=== PATIENT | male | born 1955 | race Caucasian/White ===

== ENCOUNTER → 2019-04-13 | Day surgery (SDC) | payer MEDICARE, MEDICAID ==
[~2019-04-13] MED LIST: BENZTROPINE MES1 MG; BENZTROPINE MES1 MG PO; CLONAZEPAM; CLONAZEPAM 0.50.5 M1 PO; COLACE100 MG PO; DESYREL100 MG; FERRO-TIME325 MG; FISH OIL 1,001000 M2 PO; FLOMAX0.4 MG PO; FLONASE 0.05%50 MCG; FLUVOXAMINE MAL25 MG; JANUVIA100 MG PO; K-DUR 20 MEQ T20 MEQ; LASIX 40 MG TAB40 M2 PO; LEVOXYL175 MCG; LINZESS290 MCG PO; LOSARTAN POTAS100 MG PO; METFORMIN HCL500 MG PO; NEXIUM40 MG; NEXIUM40 MG PO; NORVASC10 MG PO; PRINIVIL20 MG; REQUIP4 MG PO; RISPERDAL0.5 MG PO; RISPERDAL4 M1 PO; SELENIUM SULFI120 ML TOP; SELENIUM SULFIDE; SILDENAFIL20 MG PO; STOOL SOFTENER50 MG; SYNTHROID200 MCG PO; SYNTHROID25 MC1 PO; TRIFLUOPERAZINE10 MG; TRIFLUOPERAZINE10 MG PO; ULTRAM 50MG TAB50 MG PO; VITAMIN B122500 MCG PO; VITAMIN D5000 UNIT PO; ZETIA10 MG PO
[2019-04-13 08:36] LABS: HEMATOCRIT 39.5 % (42.0-52.0); MCH 25.8 pg (26.0-34.0); MCHC 32.9 g/dL (28.0-37.0); MCV 78.4 fL (80.0-100.0); MPV 6.9 fl. (7.2-11.1); RBC 5.03 mil/uL (4.50-6.00); RDW-CV 16.6 % (10.5-14.5); WBC 9.5 thou/uL (4.0-11.0)
[2019-04-13 08:47] LABS: CALCIUM 9.5 mg/dL (8.5-10.1); POTASSIUM 3.5 mmol/L (3.5-5.1)
--- NOTE | 2019-04-13 10:52 | EKG ---
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: : 1955 Requested By: Sergio Sam Order Number: [id number] Brock MD: Juan Correa Measurements Intervals [place] Rate: 83 P: -6 AK: 177 QRS: -34 QRSD: 102 T: 29 QT: 361 QTc: 425 Interpretive Statements Sinus rhythm Left axis deviation Abnormal R-wave progression, early transition Compared to ECG 03/29/2006 12:02:07 Left-axis deviation now present ST (T wave) deviation no longer present Electronically Signed On 04-13-2019 10:51:54 CDT by uJan Correa [email or web address] <ELECTRONICALLY SIGNED> By: Juan Correa MD, [facility] 04/13/19 1051 0830 0830 Juan Correa MD, [facility] /EPI
--- NOTE | 2019-04-16 17:06 | PATH ---
[facility] [address] [place] [address] PATHOLOGY RPT PROCEDURE Name: KEMAR ANAYA Room: [facility].#: [id number] Admission: 04/13/19 Date of : 55 Discharge: Report #: [id number] Path Case #: [id number] [facility] Accession Number: [id number] . 01 Material submitted: . PART A: colon - POLYP X1 MID TRANSVERSE COLON. Modifiers: mid, transverse PART B: colon - POLYP X3 PROXIMAL TRANSVERSE COLON. Modifiers: transverse, proximal PART C: colon - POLYP X3 1 HOT 2 COLD SIMGOID COLON. Modifiers: sigmoid PART D: rectum - POLYP X1 HOT RECTAL . 01 Clinical history: . Personal Hx of colon polyps, GERD . 02 Diagnosis: A. Mid transverse colon polyp: - Tubular adenoma, negative for high-grade dysplasia. . B. Proximal transverse colon polyp x 3: - Multiple tubular adenomas, negative for high-grade dysplasia. . C. Sigmoid colon polyp x 3 (1 hot, 2 cold): - Dominant hyperplastic polyp and two smaller tubular adenomas, negative for high-grade dysplasia. . D. Rectal polyp x 1: - Hyperplastic polyp. (MARIALUISA:pit 04/16/2019) QTP/04/16/2019 . 02 Electronically signed: . Jude Day MD, Pathologist NPI- [id number] . 01 Gross description: . A. Received in formalin labeled "Kemar Anaya, mid transverse colon polyp," is a single segment of [place] soft tissue measuring 0.5 cm in maximum dimension. The specimen is entirely submitted in cassette A1. . B. Received in formalin labeled "Kemar Anaya, proximal transverse colon polyp x3," are multiple segments of [place] soft tissue measuring 1.5 x 0.5 x 0.1 cm in aggregate dimensions. The specimen is filtered and entirely submitted in cassette B1. . C. Received in formalin labeled "Kemar Anaya, sigmoid colon polyp x3," is a 1.0 x 0.8 x 0.8 cm polypoid piece of [place] soft tissue. The margin is inked and the tissue is sectioned perpendicular to the margin and submitted in its entirety in cassettes C1 [place] [id number] PATHOLOGY RPT PROCEDURE Name: KEMAR ANAYA Room: [facility]#: [id number] Admission: 04/13/19 Date of : 55 Discharge: Report #: [id number] Path Case #: [id number] received in the same container are 2 segments of [place] soft tissue measuring 0.7 x 0.3 x 0.2 cm in aggregate dimensions and ranging from 0.3 to 0.4 cm in maximum dimension. These segments submitted entirely in cassette C3. . D. Received in formalin labeled "Kemar Anaya, rectal polyp x1," is a 0.5 x 0.4 x 0.4 cm polypoid piece of [place] soft tissue. The margin is inked and the tissue is sectioned perpendicular to the margin and submitted in its entirety in cassette D1. (TSD; 04/13/2019) TOB/TOB . 02 Pathologist provided ICD-10: D12.3, D12.5, K63.5, K62.1 . 02 CPT . 550378, 844191, 927909, 706380 Specimen Comment: A courtesy copy of this report has been sent to Specimen Comment: [phone], . Specimen Comment: Report sent to / DR UMANZOR Performed at: [address], [place], [place] [id number] MD Jesus Manuel Norman MD Phone: [phone] Performed at: 02 [facility] [address], [place], [place] [id number] MD Jude Day MD Phone: [phone]
== END | disposition home or self-care (01) ==
LOC: M.SUR 08:00
PROVIDERS: Internal Medicine Gastroenterology
DX: Z12.11 Encounter for screening for malignant neoplasm of colon (principal); Z86.010 Personal history of colon polyps; Z80.0 Family history of malignant neoplasm of digestive organs; D12.3 Benign neoplasm of transverse colon; D12.5 Benign neoplasm of sigmoid colon; K62.1 Rectal polyp; K64.4 Residual hemorrhoidal skin tags; K21.9 Gastro-esophageal reflux disease without esophagitis; I11.0 Hypertensive heart disease with heart failure; I50.9 Heart failure, unspecified; E11.9 Type 2 diabetes mellitus without complications; E78.5 Hyperlipidemia, unspecified; E03.9 Hypothyroidism, unspecified; F41.9 Anxiety disorder, unspecified; F32.9 Major depressive disorder, single episode, unspecified; J43.9 Emphysema, unspecified; F20.9 Schizophrenia, unspecified; E66.01 Morbid (severe) obesity due to excess calories; Z85.46 Personal history of malignant neoplasm of prostate; Z85.850 Personal history of malignant neoplasm of thyroid; Z88.8 Allergy status to other drugs, medicaments and biological substances; Z79.899 Other long term (current) drug therapy; Z98.890 Other specified postprocedural states

== ENCOUNTER → 2021-04-08 | Day surgery (SDC) | payer MEDICARE, MEDICAID ==
[~2021-04-08] MED LIST changes: +PROTONIX40 M2 PO
--- NOTE | ~2021-04-08 | PROC ---
[facility] [address] [place] [address] PROCEDURE REPORT Name: TOMAS ANAYA Room: [facility]#: [id number] Admission: 04/08/21 Attend Phys: Sergio Sam DO Discharge: Date of : 55 Report #: [id number] THIS REPORT FOR: cc: Rody Lozano Sarah Anne FNP [facility],Medical Records Staff ~ For GI report, please see the Provation report in Perceptive 7 content. By: 1011Medical Records Staff [facility] /ABBIE
[2021-04-08 09:59] LABS: HEMATOCRIT 34.7 % (42.0-52.0); HEMOGLOBIN 11.5 gm/dL (14.0-18.0); MCH 25.9 pg (26.0-34.0); MCHC 33.2 g/dL (28.0-37.0); MPV 6.6 fl. (7.2-11.1); RBC 4.45 mil/uL (4.50-6.00); RDW-CV 16.3 % (10.5-14.5); WBC 7.5 thou/uL (4.0-11.0)
[2021-04-08 10:03] LABS: CALCIUM 8.8 mg/dL (8.5-10.1); CREATININE 0.8 mg/dL (0.6-1.3); POTASSIUM 3.5 mmol/L (3.5-5.1)
[2021-04-08 10:13] LABS: TOTAL BILIRUBIN 0.4 mg/dL (<0.1-1.0); TOTAL PROTEIN 6.6 g/dL (6.4-8.2)
--- NOTE | 2021-04-08 14:50 | EKG ---
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: [place] : 1955 Requested By: Sergio Sam Order Number: [id number] Brock MD: Juan Correa Measurements Intervals [place] Rate: 76 P: -11 MT: 195 QRS: -14 QRSD: 118 T: 29 QT: 375 QTc: 422 Interpretive Statements Sinus rhythm Incomplete right bundle branch block Low voltage, precordial leads Compared to ECG 04/13/2019 08:30:27 Incomplete right bundle-branch block persists Low QRS voltage now present Left-axis deviation persists Electronically Signed On 04-08-2021 14:50:08 CDT by Juan Correa [email or web address] <ELECTRONICALLY SIGNED> By: Juan Correa MD, FACC 04/08/21 1450 1037 1037 Juan Correa MD, FAC /EPI
--- NOTE | 2021-04-13 11:06 | PATH ---
[address] [address] PATHOLOGY RPT PROCEDURE Name: KEMAR ANAYA Room: [facility] [place].#: [id number] Admission: 04/08/21 Date of : 55 Discharge: Report #: [id number] Path Case #: [id number] [facility] Accession Number: [id number] . 01 Material submitted: . sigmoid colon - SIGMOID POLYP . 01 Clinical history: . HX COLON POLYPS,CONSTIPATION . 02 Diagnosis: Sigmoid polyp: - Most consistent with hyperplastic polyp, negative for high-grade dysplasia. See comment. (MARIALUISA:nicky; 04/10/2021) S 04/10/2021 1016 Local . 02 Comment: The specimen is limited by prominent cauterization artifact. (MARIALUISA:nicky; 04/10/2021) . 02 Electronically signed: . Jude Day MD, Pathologist NPI- [id number] . 01 Gross description: . Received in formalin labeled "Anaya, Kemar, sigmoid polyp" is a fragment of [place]-brown soft tissue measuring 0.4 x 0.3 x 0.2 cm. The margin is inked and the specimen is submitted entirely in A1. ([place]; 04/09/2021) [facility] 04/09/2021 1235 Local . 02 Pathologist provided ICD-10: Z86.010 . 02 CPT . 858099 Specimen Comment: A courtesy copy of this report has been sent to [phone], [phone] Specimen Comment: [phone] Specimen Comment: Report sent to / DR BERMAN Performed at: [address], [place] [id number] MD Andres Lo MD Phone: [phone] Performed at: 02 [facility] [address], [place], [place] [id number] MD Jude Day MD Phone: [phone]
== END | disposition home or self-care (01) ==
LOC: M.SUR 06:34
PROVIDERS: ATTEND Internal Medicine Gastroenterology
DX: K59.00 Constipation, unspecified (principal); K63.5 Polyp of colon; Q43.8 Other specified congenital malformations of intestine; K21.9 Gastro-esophageal reflux disease without esophagitis; G47.30 Sleep apnea, unspecified; D64.9 Anemia, unspecified; Z86.010 Personal history of colon polyps; Z87.891 Personal history of nicotine dependence; Z98.890 Other specified postprocedural states; Z79.899 Other long term (current) drug therapy; Z86.19 Personal history of other infectious and parasitic diseases; Z88.8 Allergy status to other drugs, medicaments and biological substances

== ENCOUNTER → 2021-05-01 | Outpatient (CLI) | payer MEDICARE, MEDICAID | LOC: M.CT 13:53 | PROVIDERS: ATTEND Internal Medicine Gastroenterology | DX: N28.1 Cyst of kidney, acquired (principal); D17.79 Benign lipomatous neoplasm of other sites; I70.0 Atherosclerosis of aorta; J92.9 Pleural plaque without asbestos; R10.30 Lower abdominal pain, unspecified; D50.9 Iron deficiency anemia, unspecified ==